=== PATIENT | female | born 1940 | race Caucasian/White ===

== ENCOUNTER 2017-01-31 15:58 | Inpatient (IN) | payer MEDICARE, OTHER ==
--- NOTE | ~2017-01-31 | HP ---
Unit #: [id number] #: [id number] Patient: BRIGETTE GREENWOOD [id number] [facility] [address] [facility]. [place], [place] [address] [id number] I MR#: [id number] NAME: BRIGETTE GREENWOOD. ROOM: 568 Age: 76 Sex: F Admission Date: 01/31/2017 : 1940 Attending Physician: Ayr Blas M.D. Primary Care Physician: Erica Singh M.D. HISTORY AND PHYSICAL CHIEF COMPLAINT Bradycardia and urinary tract infection. HISTORY OF PRESENT ILLNESS The patient is a 76-year-old female who follows with Dr. Hart of [facility]. In 08/2007 the patient had a cardiac catheterization here at [facility] per Dr. Hart, which showed the left main was normal, proximal LAD 50% stenosis, small ramus 40%-50% stenosis, left circumflex nondominant with no stenosis and RCA was dominant with no stenosis. The patient reports that she had a cardiac catheterization in 07/2013 at [facility]. The FFR across the LAD was 0.89 and no further PCI was carried out since the FFR was insignificant. The patient also has a past medical history of congestive heart failure, hypothyroidism, obstructive sleep apnea with CPAP compliance, obesity, uterine cancer status post hysterectomy, iron deficiency anemia, depression, questionable history of atrial fibrillation and she is a nonsmoker. The patient reports for the past two days prior to admission she was feeling weak, but was able to get up and walk around. On the day of admission the patient reports that she was so weak that she was unable to walk very far. She was not even able to walk across her house. She called EMS and was brought to [facility]. The patient was found to have a urinary tract infection and was treated with 1 g of Rocephin. The emergency room also noticed that she was having atrial fibrillation with rates in the 40s. The patient denies any nausea, vomiting, fever, chills, chest pain or shortness of air. The patient does report that she is unable to lie flat at night and sleeps in a lift chair in a recliner. This is not new for the pt. She denies following any sort of cardiac diet. Also in the emergency department the patient's troponin was 0.05 and now is 0.03. TSH is 1.05. EKG shows atrial fibrillation with slow ventricular rate. Cardiology is admitting for bradycardia. PAST MEDICAL HISTORY 1. Cardiac catheterization in 07/2013 at [facility] showed the FFR across the LAD was 0.98. No further PCI was carried out. FFR was insignificant. 2. Cardiac catheterization on 09/22/2007 with left main normal, proximal LAD 50%, small ramus 40%-50% stenosis, left circumflex nondominant with no stenosis and RCA dominant with no stenosis. 3. Congestive heart failure. Type unknown. 4. Possible atrial fibrillation. Unit #: [id number] #: [id number] Patient: BRIGETTE GREENWOOD 5. Hypothyroidism. 6. Obesity. 7. Obstructive sleep apnea with CPAP compliance. 8. History of uterine cancer, status post hysterectomy. 9. Iron deficiency anemia. 10. Depression. 11. Nonsmoker. 12. Incontinence. 13. Seasonal allergies. PAST SURGICAL HISTORY 1. Cholecystectomy. 2. Hysterectomy. 3. Glaucoma surgery on the left eye and cataract surgery on the right eye. SOCIAL HISTORY The patient reports that she quit smoking cigarettes in 1984. She denies alcohol or illicit drug abuse. She lives in a house and is able to walk with a walker. She has been a for one year. She does have strong family support because they do live in her neighborhood. FAMILY HISTORY The patient reports that her mother and her brother had congestive heart failure. ALLERGIES Penicillin. HOME MEDICATIONS 1. Coreg 6.25 mg p.o. b.i.d. 2. Atorvastatin 5 mg p.o. at bedtime. 3. Aspirin 81 mg p.o. daily. 4. Zyrtec 10 mg p.o. daily. 5. Isosorbide mononitrate ER 60 mg p.o. daily. 6. Potassium chloride 10 mEq p.o. daily. 7. Celexa 10 mg p.o. daily. 8. Vitamin B12 1000 mcg injection weekly. 9. Ferrous sulfate 1 tablet p.o. daily. 10. Myrbetriq 25 mg p.o. daily. 11. Hydroxyzine 25 mg p.o. b.i.d. p.r.n. itching. 12. Multivitamin 1 tablet p.o. daily. 13. Calcium plus vitamin D 500 mg p.o. daily. 14. Colace 100 mg p.o. daily p.r.n. constipation. 15. Synthroid 0.125 mg p.o. daily. 16. Demadex 20 mg p.o. b.i.d. 17. Tylenol 500 mg p.o. q.6 h. p.r.n. pain. 18. Tizanidine 2 mg p.o. at bedtime. REVIEW OF SYSTEMS CONSTITUTIONAL: Denies fever and chills, endorses fatigue. HEENT: Denies sore throat, ear pain or runny nose. CARDIOVASCULAR: Denies chest pain, irregular rhythm or palpitations. CHEST: She denies shortness of breath, cough or hemoptysis. GI: Denies nausea, vomiting, chronic constipation or hematochezia and diarrhea. ENDOCRINE: Denies history of excessive urination. No recent significant weight loss or gain. Unit #: [id number] #: [id number] Patient: BIRGETTE GREENWOOD : Denies dysuria, frequency or hematuria. SKIN: Denies any unusual rashes or lesions. HEMATOLOGIC: Denies any increase bruising or bleeding. MUSCULOSKELETAL: Denies any hot, swollen joints. No generalized muscle pain. NEUROLOGIC: Denies problems with speech or vision. No frequent or severe headache. No numbness, tingling, or weakness in any extremities. Denies loss of bowel or bladder control. Denies dizziness. PHYSICAL EXAMINATION VITAL SIGNS: Temperature 98.6, heart rate 56, respiratory rate 18, blood pressure 128/42, oxygenating 98%. GENERAL: The patient is a pleasant 76-year-old female who is awake, alert and in no acute distress. HEENT: Head is atraumatic, normocephalic. Pupils equal, round, reactive. Extraocular movements are intact. No discharge from the ears or nares. NECK: Supple. Trachea is midline. No jugular venous distension. Normal carotid upstroke. CHEST: Lungs are diminished bilaterally. No wheezes, rales or rhonchi. HEART: S1, S2, irregular. No murmurs, rubs, or gallops are appreciated. ABDOMEN: Soft, nontender and nondistended. Bowel sounds are positive in all four quadrants. No hepatosplenomegaly is appreciated. SKIN: Appears to be warm and dry. She does have erythema in the bilateral lower extremities. EXTREMITIES: No clubbing or cyanosis. Patient does have +1 bilateral lower extremity edema. NEUROLOGIC: Alert and oriented times 3. She is pleasant, conversant. Cranial II through XII appear to be intact. No focal deficits. PSYCHIATRIC: No homicidal or suicidal ideations. DIAGNOSTIC STUDIES IMAGING: Chest x-ray shows no active disease. LABORATORY: Troponin is 0.05, 0.03. TSH 1.05. Urinalysis positive. Urine culture is pending. White blood cell count 3.9, hemoglobin 11.2, hematocrit 33.2, platelets 126, sodium 139, potassium 4.3, chloride 100, CO2 33, BUN 26, creatinine 0.9, glucose 103. CARDIOVASCULAR: EKG shows atrial fibrillation. ASSESSMENT 1. Paroxysmal atrial fibrillation. 2. Sinus bradycardia. 3. Urinary tract infection. 4. Coronary artery disease with last catheterization in 2013 with 0.89 FFR of LAD. 5. Congestive heart failure, type unknown. 6. Hypothyroidism. 7. Obesity with a BMI greater than 30. 8. Iron deficiency anemia. 9. Depression. PLAN The patient's Coreg has been stopped. Will obtain cardiac catheterization report from [facility]. Will check a two-dimensional echo at the bedside. Will continue the patient on Rocephin 1 g IV daily. Will start the patient on Lovenox 120 mg subcutaneous daily. Will check BMP, CBC, troponin, fasting lipid panel, EKG tomorrow morning. Unit #: [id number] #: [id number] Patient: BRIGETTE GREENWOOD Alfredo Dictated by Rina Pruitt A.P.R.N. AM/gz TD: 02/01/2017 11:01 JOB #: [id number] HISTORY AND PHYSICAL X Rina Pruitt APRN X HISTORY AND PHYSICAL
--- NOTE | ~2017-01-31 | EKG ---
PATIENT: BRIGETTE GREENWOOD UNIT #: [id number] Ventricular Rate: 38 BPM Atrial Rate: 56 BPM QRS Duration: 98 ms Q-T Interval: 458 ms QTC Calculation(Bezet): 364 ms Calculated R [place]: 34 degrees Calculated T [place]: 4 degrees Diagnosis Line: Sinus bradycardia with 2nd degree A-V block Diagnosis Line: (Mobitz I) with 1st degree A-V block Diagnosis Line: Abnormal ECG Diagnosis Line: When compared with ECG of 01-FEB-2017 05:38, Diagnosis Line: No significant change was found Diagnosis Line: Confirmed by GLORIA CHILEL MD ([id number]) on 02/04/2017 Diagnosis Line: 7:21:04 PM INTERPRETING MD: GETACHEW PLUNKETT
--- NOTE | ~2017-01-31 | CO ---
Unit #: [id number] #: [id number] Patient: BRIGETTE HERNANDEZ [id number] [address] [place], [place] [address] [id number] I MR#: [id number] NAME: BRIGETTE HERNANDEZ. ROOM: 568 Age: 76 Sex: F Admission Date: 02/02/2017 : 1940 Attending Physician: Ary Blas M.D. Primary Care Physician: Erica Singh M.D. CONSULTATION REPORT HISTORY OF PRESENT ILLNESS Ms. Hernandez is a 76-year-old white female who has a history of FRACISCO and is maintained on CPAP 15. She was seen in the office just about 3 months ago and had been poorly compliant with CPAP due to the of her but she had started re-wearing it. At that time, she had a residual AHI of less than 5 on CPAP 15. Apparently, her machine stopped working. In the interim, she has bee admitted to the hospital with a urinary tract infection, sinus bradycardia, paroxysmal atrial fibrillation. We were asked to see about a new CPAP machine. Her most recent study was done in November 2011. Her machine is over 5 years old. When she wears CPAP, she notes improvement in the quality of her sleep and daytime sleepiness. PAST MEDICAL HISTORY Significant for: 1. Coronary artery disease. 2. Congestive heart failure. 3. Atrial fibrillation. 4. Hypothyroidism. 5. Morbid obesity. 6. FRACISCO. 7. Uterine cancer, status post hysterectomy. 8. Iron-deficiency anemia. 9. Depression. 10. Seasonal allergies. PAST SURGICAL HISTORY 1. Cholecystectomy. 2. Hysterectomy. 3. Glaucoma surgery left eye. 4. Cataract on right eye. HOME MEDICATIONS 1. Coreg. 2. Atorvastatin. 3. Aspirin. 4. Zyrtec. 5. Isosorbide mononitrate. 6. Potassium. 7. Celexa. 8. Vitamin B12. 9. Ferrous sulfate. 10. Myrbetriq. 11. Hydroxyzine. 12. Multivitamins. Unit #: [id number] #: [id number] Patient: BRIGETTE HERNANDEZ 13. Calcium plus vitamin D. 14. Colace. 15. Synthroid. 16. Demadex. 17. Tylenol. 18. Tizanidine. ALLERGIES Penicillin. SOCIAL HISTORY Quit smoking 1984. Denies alcohol or illicit drugs. Lives in a house. Is able to walk with a walker. She has been a for one year. FAMILY HISTORY Congestive heart failure. REVIEW OF SYSTEMS CONSTITUTIONAL: Denies fevers or chills. Has been fatigued and weak. HEENT: Denies congestion. CARDIOVASCULAR: No chest pain. No palpitations. GASTROINTESTINAL: No nausea or vomiting. GENITOURINARY: No hematuria or dysuria. ENDOCRINE: No polyuria, polydipsia. HEMATOLOGIC: No easy bruising, bleeding. SKIN: No rash. NEUROLOGIC: No unilateral weakness or numbness. MUSCULOSKELETAL: No swollen joints. PHYSICAL EXAMINATION VITAL SIGNS: Blood pressure 154/48, pulse 60, respiratory rate 18, afebrile. GENERAL: White female, in no distress. HEENT: Normocephalic, atraumatic. Pupils equal, round, reactive. Sclerae anicteric. Nasal passages patent. Posterior pharynx clear. Mallampati III-IV. NECK: Thick, supple. Trachea midline. LUNGS: Clear. HEART: Irregular rhythm. Could not appreciate murmur, rub or gallop. ABDOMEN: Nontender. Bowel sounds present. No hepatosplenomegaly. EXTREMITIES: Without clubbing, cyanosis, or edema. NEUROLOGIC: Awake, alert, oriented x3. Moves all extremities. PSYCHIATRIC: Pleasant, affect normal, calm. DIAGNOSTIC STUDIES LABORATORY: Reviewed. IMAGING: Chest x-ray no acute infiltrate, mass or congestion. IMPRESSION Obstructive sleep apnea with nonfunctioning machine greater than 5 years old. Will arrange to get new CPAP and will see in followup to confirm she is compliant and therapeutic. She can wear a CPAP sponsored through rehab set at 15 until she gets her new machine. Unit #: [id number] #: [id number] Patient: BRIGETTE HERNANDEZ Dictated by... Boni Ivan M.D. DARRIUS/shaun TD: 02/05/2017 21:03 JOB #: [id number] CONSULTATION REPORT X Boni Ivan MD X CONSULTATION REPORT
--- NOTE | ~2017-01-31 | DS ---
Unit #: [id number] #: [id number] Patient: BRIGETTE GREENWOOD [id number] [facility]. [place], [place] [address] [id number] I MR#: [id number] NAME: BRIGETTE GREENWOOD. ROOM: 568 Age: 76 Sex: F Admission Date: 02/02/2017 : 1940 Discharge Date: Attending Physician: Ary Blas M.D. Primary Care Physician: Erica Singh M.D. DISCHARGE SUMMARY ADDENDUM This is an addendum to job #[id number]. The patient was to be discharged to [facility]. She has had previous experiences at [facility] mcfp unit at [place] and preferred to go there. Bed was available; however, there was a delay in the discharge because of delivery of CPAP machine that was needed while at rehab. She has no change in her assessment since the previous dictation. She has completed her course of Levaquin. Therefore, Levaquin will be discontinued. She is to continue on anticoagulation with Xarelto. DISCHARGE MEDICATIONS CHANGES 1. Discontinue Levaquin. 2. Mucinex 600 mg p.o. q.12 hours p.r.n. has been added. Dictated by... Amanda Oviedo TD: 02/07/2017 12:46 JOB #: [id number] DISCHARGE SUMMARY X Herb Arellano APRN DISCHARGE SUMMARY
--- NOTE | ~2017-01-31 | BMI ---
[facility] Nutrition Therapy DATE: 02/01/17 Patient: BRIGETTE GREENWOOD Physician: ATTPRE Address: [address] [place] [address] Room/Bed: [address] [place] [address], Zip: [place] [address] Admit Date: 01/31/17 Date of : 38 Height: 5 3 Weight: 267 121.1 HIGH BMI NOTE: DX: 76 Y.O. FEMALE ADMITTED FOR [facility] ANTHROPOMETRICS: 5'3", WT: 267# (121 KG), BMI: 47.3 DIET: HH INTERVENTION: 1. DIET RECOMMENDATIONS: 1. CONTINUE CURRENT DIET ORDER ABOVE TO PROMOTE GRADUAL WEIGHT LOSS TOWARDS HEALTHY BMI (19.0-25.0) OR +/-10%IBW RD WILL F/U PER PROTOCOL Respectfully, FRANCY CEVALLOS MS, RD, LD Food and Nutritional Services [facility] cc: client file
--- NOTE | ~2017-01-31 | EKG ---
PATIENT: BRIGETTE GREENWOOD UNIT #: [id number] Ventricular Rate: 48 BPM Atrial Rate: 69 BPM QRS Duration: 90 ms Q-T Interval: 452 ms QTC Calculation(Bezet): 403 ms Calculated R [place]: 31 degrees Calculated T [place]: -16 degrees Diagnosis Line: Atrial fibrillation with slow ventricular response Diagnosis Line: Abnormal ECG Diagnosis Line: When compared with ECG of 31-JAN-2017 15:13, Diagnosis Line: (unconfirmed) Diagnosis Line: No significant change was found Diagnosis Line: Confirmed by ROVERTO MIDDLETON MD ([id number]) on Diagnosis Line: 02/01/2017 8:11:15 PM INTERPRETING MD: SALOMON
--- NOTE | ~2017-01-31 | CR72 ---
[facility] A Service of [facility] & [facility] RADIOLOGY TEXT RESULTS PATIENT: BRIGETTE GREENWOOD LOCATION: [facility] 568-01 : 38 UNIT #: [id number] AGE: [address]: Ary Blas MD SEX: F ORDER DR: [id number] [facility] [address] [facility] [address]. [place], [place] [address] [id number] I MR#: [id number] Acc #: [id number] NAME: BRIGETTE GREENWOOD. : 1940 SEX: F STUDY DATE/TIME: 01/31/2017 15:38 UNIT: [facility] ROOM: [facility] STUDY DESCRIPTION: CR Chest Single View Portable Attending Physician: Ary Blas M.D. Ordering Physician: Ed Brooks Ramos M.D. Primary Care Physician: Erica Singh M.D. MEDICAL IMAGING REPORT This report is preliminary unless electronic signature is present EXAM Portable chest, 01/31. INDICATIONS Weakness, shortness of air and leg swelling since yesterday. COMPARISON 05/20/2015. Portable view of the chest was obtained. Heart size and vascularity are normal and lungs are clear. The bones are unremarkable. IMPRESSION No active disease. Dictated by... Jhony Horn M.D. THIS IS AN ELECTRONICALLY VERIFIED REPORT Jhony Horn M.D. at 02/01/2017 12:24 PM DARLENE/ava TD: 02/01/2017 07:13 JOB #: [id number] MEDICAL IMAGING REPORT COPY
--- NOTE | ~2017-01-31 | EKG ---
PATIENT: BRIGETTE GREENWOOD UNIT #: [id number] Ventricular Rate: 43 BPM Atrial Rate: 51 BPM QRS Duration: 96 ms Q-T Interval: 482 ms QTC Calculation(Bezet): 407 ms Calculated R [place]: 20 degrees Calculated T [place]: 30 degrees Diagnosis Line: Undetermined rhythm Diagnosis Line: Cannot rule out Anterior infarct (cited on or Diagnosis Line: before 31-JAN-2017) Diagnosis Line: Abnormal ECG Diagnosis Line: When compared with ECG of 20-MAY-2015 00:49, Diagnosis Line: Current undetermined rhythm precludes rhythm Diagnosis Line: comparison, needs review Diagnosis Line: Confirmed by MEGHAN HAAS MD ([id number]) on Diagnosis Line: 02/03/2017 12:00:34 AM INTERPRETING MD: SAMINA PLUNKETT
--- NOTE | ~2017-01-31 | EKG ---
PATIENT: BRIGETTE GREENWOOD UNIT #: [id number] Ventricular Rate: 50 BPM Atrial Rate: 58 BPM QRS Duration: 92 ms Q-T Interval: 444 ms QTC Calculation(Bezet): 404 ms Calculated R [place]: 25 degrees Calculated T [place]: -26 degrees Diagnosis Line: Normal sinus rhythm with 2nd degree A-V block Diagnosis Line: (Mobitz I) Diagnosis Line: Nonspecific ST and T wave abnormality , probably Diagnosis Line: digitalis effect Diagnosis Line: Abnormal ECG Diagnosis Line: When compared with ECG of 02-FEB-2017 05:50, Diagnosis Line: (unconfirmed) Diagnosis Line: No significant change was found Diagnosis Line: Confirmed by GLORIA CHILEL MD ([id number]) on 02/04/2017 Diagnosis Line: 7:27:59 PM INTERPRETING MD: GETACHEW PLUNKETT
--- NOTE | ~2017-01-31 | DS ---
Unit #: [id number] #: [id number] Patient: BRIGETTE GREENWOOD [id number] [facility]. [place] [address] [facility]. [place], [place] [address] [id number] MR#: [id number] NAME: BRIGETTE GREENWOOD. ROOM: 568 Age: 76 Sex: F Admission Date: 02/02/2017 : 1940 Discharge Date: 02/05/2017 Attending Physician: Ary Blas M.D. Primary Care Physician: Erica Singh M.D. DISCHARGE SUMMARY DISCHARGE DIAGNOSES 1. Asymptomatic sinus bradycardia, secondary degree Mobitz 1 Wenckebach. 2. Paroxysmal atrial fibrillation with controlled ventricular rate converted to normal sinus rhythm. 3. 2D echocardiogram 02/01/2017 shows an ejection fraction of 55% with mild mitral regurgitation and mild tricuspid regurgitation. Right ventricular systolic pressure 32 mmHg. 4. Coronary artery disease, status post cardiac catheterization 08/06/[address] Hart at [facility], that revealed left main normal. Left anterior descending had ostial stenosis of 50% to 60%. A good size diagonal with no significant stenosis. Circumflex artery nondominant, normal. Ramus intermedius branch with ostial stenosis, 60% to 70%. Was not a good interventional vessel given a stent in this area would occlude the left main. The right coronary artery is a dominant vessel with right ventricular branch with 50% to 60% stenosis proximally. Ejection fraction of 50% to 55%. It was concluded in his dictation that left anterior descending by recent FFR was not significant as well as the ramus was not amenable to interventions. 5. Patient reported congestive heart failure, chronic possibly diastolic. 6. Hypothyroidism. 7. Obstructive sleep apnea, wears CPAP. 8. Morbid obesity. 9. Nonsmoker. 10. Gram-negative vaughn urinary tract infection. DISCHARGE MEDICATIONS 1. Celexa 10 mg daily. 2. Zyrtec 10 mg daily. 3. Hydroxyzine 25 mg b.i.d. p.r.n. 4. Colace 100 mg daily p.r.n. 5. Demadex 20 mg b.i.d. 6. Myrbetriq 25 mg daily. 7. Atorvastatin 5 mg q.h.s. 8. Ferrous sulfate 324 mg daily. 9. Multivitamin 1 tablet daily. 10. Aspirin 81 mg daily. 11. Calcium 500 plus D 200 one tablet daily. 12. Potassium chloride 10 mEq daily. 13. Zanaflex 2 mg q.h.s. 14. Levothyroxine 0.125 mg daily. 15. Isosorbide mononitrate 60 mg daily. 16. Vitamin B12 1,000 mcg IM weekly. Unit #: [id number] #: [id number] Patient: BRIGETTE GREENWOOD 17. Levaquin 250 mg daily x3 days. 18. Xarelto 20 mg daily. HOSPITAL COURSE This is a 76-year-old female who presented to the emergency room with the complaint of weakness when she had difficulty walking around. She was found to have a urinary tract infection that was treated with IV Rocephin. She was also found to be bradycardic by electrocardiogram. Representing electrogram shows a heart rate of 43. She was also noted to have atrial fibrillation with slow ventricular rate, as well as 38 BPM. During the course of her stay, she had secondary degree AV block, Mobitz I Wenckebach. Carvedilol was discontinued. Her heart rate improved. 2D echocardiogram found her to have normal left ventricular systolic function with ejection fraction of 55%. She had no complaints of chest pain and troponin remained normal. Records from [place] revealed that the patient had moderate coronary artery disease but there was 50% to 60% ostial LAD stenosis, as well as 60% to 70% stenosis at the ramus intermedius branch. Apparently she had a subsequent FFR of the LAD stenosis, which was insignificant according to office notes from Dr. Hart. The ramus intermedius branch was not amenable to PCI because it would compromise the integrity of the left main. She was continued on aspirin and statin. The patient was noted to have leukocytes and WBCs, as well as bacteria and urinalysis. Urine culture positive for Proteus mirabilis. She was treated with IV Rocephin. She will be discharged home on Levaquin for three more days. Because of weakness, physical therapy saw the patient and felt that she could benefit from subacute rehab. The patient agreed. She has known obstructive sleep apnea but says her CPAP machine is broken. Dr. Ivan saw her in consult and a new CPAP has been arranged for home use. She is wear CPAP 15 with sleeps at rehab. It is felt the patient's heart rate has stabilized. She can be discharged to rehab when bed available. PHYSICAL EXAMINATION VITAL SIGNS: Blood pressure 137/53, heart rate 68, temperature 98.1. CHEST: Clear to auscultation but diminished breath sounds. HEART: S1 and S2 with regular rate and rhythm. ABDOMEN: Soft with bowel sounds present. EXTREMITIES: Without leg edema. DIAGNOSTIC STUDIES LABORATORY STUDIES: Glucose 106, BUN 30, creatinine 1.0, sodium 139, potassium 3.8. Troponin less than 0.05. Cholesterol 119. Triglycerides 78, LDL 52, HDL 51, TSH 1.01. White count 4.5, hemoglobin 11.8, hematocrit 34.8, platelet count 147. Urine culture is positive for Proteus mirabilis. CARDIOVASCULAR STUDIES: Rhythm strips shows sinus rhythm with first degree AV block. CONSULTATION Dr. Boni Ivan, pulmonary disease. DISPOSITION [facility]. PLAN Unit #: [id number] #: [id number] Patient: BRIGETTE GREENWOOD 1. The patient will be discharged to [facility] for rehabilitation and strengthening. 2. Levaquin will be continued for three days and then discontinued. 3. The patient has (1) and will need long-term anticoagulation. She will continue on Xarelto, because the Xarelto was obtained and it was affordable for the patient. 4. She will need a 24 hour Holter monitor at rehab in one week. 5. Arrangements have been made for CPAP 15. The patient is to wear a CPAP 15 with sleep at rehab. 6. Continue medications as above, but no beta-bay because of bradyarrhythmias. 7. Followup with Dr. Hart in three to six weeks. 8. 1. Dictated by... Amanda Oviedo/nirmala TD: 02/05/2017 08:18 JOB #: [id number] CC: Kalin Hart M.D. DISCHARGE SUMMARY X Herb Arellano APRN DISCHARGE SUMMARY
[2017-01-31 15:18] LABS: BASOPHIL% 0.3 % (0-2.5); EOSINOPHIL# 0.1 X10e3 (0-0.7); EOSINOPHIL% 1.9 % (0.0-7.0); HEMATOCRIT 32.9 % (35.0-45.0); HEMOGLOBIN 11.1 gm/dL (12.0-16.0); LYMPHOCYTE# 1.2 X10e3 (1.0-3.5); MEAN CELL VOLUME 93.9 FL (83-96); MEAN CORPUSCULAR HEMOGLOBIN 31.6 PG (28-34); MEAN CORPUSCULAR HGB CONC 33.6 g/dL (30-36); MEAN PLATELET VOLUME 9.2 FL (6.5-11.5); MONOCYTE# 0.3 X10e3 (0-1.0); MONOCYTE% 7.7 % (3.0-12.0); NEUTROPHIL# 2.2 X10e3 (1.5-7.1); NEUTROPHIL% 58.1 % (40-75); PLATELET COUNT 148 X10e3 (140-420); WHITE BLOOD COUNT 3.9 X10e3 (4.0-10.5)
[2017-01-31 15:21] LABS: DIFF IND NO
[2017-01-31 15:28] LABS: POC - CKMB <1.0 ng/mL (0.0-7.9); POC - TROPONIN <0.05 ng/mL (<=0.05)
[~2017-01-31 15:58] MED LIST: ASPIRIN81 M2 PO; ATORVASTATIN CA10 MG PO; COREG; DITROPAN5 MG PO; FERROUS SU325 ( 65 ) PO; FLEXERIL PO; FOLIC ACID1 MG PO; ISOSORBIDE MONO60 M1 PO; KCL; LASIX; LISINOPRIL; POTASSIUM CHLO10 ME1 PO; SYNTHROID; SYNTHROID112 MCG PO; TORADOL10 MG PO; ZYRTEC; ZYRTEC PO
[2017-01-31 15:59] LABS: ALBUMIN SERUM 4.1 g/dL (3.5-5.0); ALKALINE PHOSPHATASE 66 U/L (32-92); ALT (SGPT) 15 U/L (10-40); AST (SGOT) 20 U/L (10-42); BILIRUBIN, DIRECT 0.1 mg/dL (0.0-0.2); BILIRUBIN,INDIRECT 0.3 mg/dL (0.0-0.9); BILIRUBIN,TOTAL 0.4 mg/dL (0.2-2.0); BLOOD UREA NITROGEN 25 mg/dL (9-23); BUN/CREATININE RATIO 31.25; CALCIUM SERUM 9.2 mg/dL (8.4-10.2); CARBON DIOXIDE 30 mmol/L (22-31); CHLORIDE 97 mmol/L (100-111); CREATININE SERUM 0.8 mg/dL (0.6-1.4); GLOM FILT RATE Estimated ABOVE60 mL/min (>60); GLUCOSE FASTING 135 mg/dL (70-110); POTASSIUM 4.1 mmol/L (3.5-5.1); PROTEIN TOTAL SERUM 7.3 g/dL (6.0-8.3); SODIUM 137 mmol/L (135-145)
[2017-01-31 17:11] LABS: URINE SOURCE CLEAN CATCH
[2017-01-31 17:16] LABS: URINE APPEARANCE CLEAR; URINE BILIRUBIN NEG (NEG); URINE BLOOD NEG (NEG); URINE COLOR YELLOW; URINE GLUCOSE NEG (NEG); URINE KETONE NEG (NEG); URINE LEUKOCYTE ESTERASE 3+ (NEG); URINE NITRATE NEG (NEG); URINE PH 6.5 (5-8); URINE PROTEIN NEG (NEG); URINE SPECIFIC GRAVITY 1.009 (1.003-1.035); URINE UROBILINOGEN 0.2 MG/DL (NEG)
[2017-01-31 17:19] LABS: CULTURE INDICATED? YES; U HYALINE CASTS AUWI 0-2 /[LPF]; URBCS1 AUWI 0-2 /[HPF] (0-2); URINE BACTERIA AUWI 3+ (NEGATIVE); URINE SQUAMOUS EPITHELIAL CELL FEW /[HPF]
[2017-01-31] MEDS ORDERED: CYANOCOBAL1000 MCG/M INJ (18:21)
[2017-01-31] MEDS ORDERED: CELEXA10 M1 PO (18:21)
[2017-01-31] MEDS ORDERED: FEROSUL325 ( 651 PO (18:22)
[2017-01-31] MEDS ORDERED: MYRBETRIQ25 MG PO (18:22)
[2017-01-31] MEDS ORDERED: HYDROXYZINE PAM25 MG PO (18:22)
[2017-01-31] MEDS ORDERED: MULTI-VITAMIN1 EAC1 PO (18:23)
[2017-01-31] MEDS ORDERED: OS-CAL 500 + D500 MG PO (18:23)
[2017-01-31] MEDS ORDERED: DOCUSATE SODIU100 MG PO (18:40)
[2017-01-31] MEDS ORDERED: SYNTHROID125 PO (18:40)
[2017-01-31] MEDS ORDERED: TIZANIDINE HCL2 M1 PO (18:41)
[2017-01-31] MEDS ORDERED: DEMADEX PO (18:41)
[2017-01-31] MEDS ORDERED: ACETAMINOPHEN PO (18:42)
[2017-02-01 07:38] LABS: BASOPHIL% 0.4 % (0-2.5); EOSINOPHIL# 0.1 X10e3 (0-0.7); EOSINOPHIL% 1.7 % (0.0-7.0); HEMATOCRIT 33.2 % (35.0-45.0); HEMOGLOBIN 11.2 gm/dL (12.0-16.0); LYMPHOCYTE# 1.6 X10e3 (1.0-3.5); LYMPHOCYTE% 41.3 % (17.0-45.0); MEAN CELL VOLUME 94.5 FL (83-96); MEAN CORPUSCULAR HEMOGLOBIN 31.7 PG (28-34); MEAN CORPUSCULAR HGB CONC 33.6 g/dL (30-36); MEAN PLATELET VOLUME 9.6 FL (6.5-11.5); MONOCYTE# 0.3 X10e3 (0-1.0); MONOCYTE% 7.8 % (3.0-12.0); NEUTROPHIL# 1.9 X10e3 (1.5-7.1); NEUTROPHIL% 48.8 % (40-75); PLATELET COUNT 126 X10e3 (140-420); RED BLOOD COUNT 3.52 X10e (3.90-5.30); RED CELL DISTRIBUTION WIDTH 12.6 % (11.0-15.5); WHITE BLOOD COUNT 3.9 X10e3 (4.0-10.5)
[2017-02-01 07:40] LABS: DIFF IND NO
[2017-02-01 08:03] LABS: BLOOD UREA NITROGEN 23 mg/dL (9-23); BUN/CREATININE RATIO 25.55; CALCIUM SERUM 9.1 mg/dL (8.4-10.2); CARBON DIOXIDE 33 mmol/L (22-31); CHLORIDE 100 mmol/L (100-111); CREATININE SERUM 0.9 mg/dL (0.6-1.4); GLOM FILT RATE Estimated ABOVE60 mL/min (>60); GLUCOSE FASTING 103 mg/dL (70-110); POTASSIUM 4.3 mmol/L (3.5-5.1); SODIUM 139 mmol/L (135-145)
[2017-02-02 05:37] LABS: HEMATOCRIT 34.8 % (35.0-45.0); HEMOGLOBIN 11.8 gm/dL (12.0-16.0); MEAN CORPUSCULAR HEMOGLOBIN 31.9 PG (28-34); MEAN PLATELET VOLUME 9.8 FL (6.5-11.5); RED BLOOD COUNT 3.71 X10e (3.90-5.30); RED CELL DISTRIBUTION WIDTH 12.8 % (11.0-15.5); WHITE BLOOD COUNT 4.5 X10e3 (4.0-10.5)
[2017-02-02 06:11] LABS: BLOOD UREA NITROGEN 29 mg/dL (9-23); BUN/CREATININE RATIO 36.25; CALCIUM SERUM 9.2 mg/dL (8.4-10.2); CARBON DIOXIDE 33 mmol/L (22-31); CHLORIDE 97 mmol/L (100-111); CHOLESTEROL 119 mg/dL (0-200); CREATININE SERUM 0.8 mg/dL (0.6-1.4); GLOM FILT RATE Estimated ABOVE60 mL/min (>60); GLUCOSE FASTING 104 mg/dL (70-110); HDL CHOLESTEROL 51 mg/dL (35-95); LDL CHOLESTEROL 52 mg/dL (-130); LDL/HDL RATIO 1 RATIO (0-4); POTASSIUM 4.1 mmol/L (3.5-5.1); SODIUM 139 mmol/L (135-145); TRIGLYCERIDES 78 mg/dL (10-160)
[2017-02-03 07:27] LABS: CALCIUM SERUM 9.3 mg/dL (8.4-10.2); POTASSIUM 3.8 mmol/L (3.5-5.1)
== END 2017-02-07 15:06 | DRG 309 ==
LOC: CED 15:58 → CEDOF 02-02 10:41 → C5C 02-03 15:12
PROVIDERS: Emergency Medicine; Internal Medicine Cardiovascular Disease; Nurse Practitioner
PROC: B24BYZZ Ultrasonography of Heart with Aorta using Other Contrast (ICD-10-PCS; principal; 2017-02-02)
DX: I48.0 Paroxysmal atrial fibrillation (principal); N39.0 Urinary tract infection, site not specified; I50.32 Chronic diastolic (congestive) heart failure; R00.1 Bradycardia, unspecified; I25.10 Atherosclerotic heart disease of native coronary artery without angina pectoris; E03.9 Hypothyroidism, unspecified; G47.33 Obstructive sleep apnea (adult) (pediatric); Z90.710 Acquired absence of both cervix and uterus; D50.8 Other iron deficiency anemias; F32.9 Major depressive disorder, single episode, unspecified; I48.91 Unspecified atrial fibrillation; R32 Unspecified urinary incontinence; Z87.891 Personal history of nicotine dependence; Z88.0 Allergy status to penicillin; Z79.82 Long term (current) use of aspirin; Z68.30 Body mass index [BMI] 30.0-30.9, adult; E66.01 Morbid (severe) obesity due to excess calories; I44.1 Atrioventricular block, second degree; I08.1 Rheumatic disorders of both mitral and tricuspid valves
CPT/HCPCS: 36415; 71010; 80048; 80061; 80076; 81003; 82553; 82947; 83735; 84443; 84484; 85025; 85027; 87086; 87186; 93005; 93306; 94660; 94760; 97116; 97163; 97166; 97530; 99285; G8978-GP; G8979-GP; G8987-GO; G8988-GO; J0696; J1650; J3420